=== PATIENT | female | born 1985 | race Caucasian/White ===

== ENCOUNTER → 2018-10-05 | Outpatient (CLI) | payer BC ==
[2018-10-05 11:42] LABS: BASO # 0.1 x10^3/uL (0.0-0.2); BASO % 1 % (0-3); EOS # 0.2 x10^3/uL (0.0-0.7); EOS % 2 % (0-3); HEMATOCRIT 43.1 % (36.0-47.0); HEMOGLOBIN 14.9 g/dL (12.0-15.5); LYMPH # 2.2 x10^3/uL (1.0-4.8); LYMPH % 22 % (24-48); MEAN CORPUSCULAR HEMOGLOBIN 30 pg (25-35); MEAN CORPUSCULAR HGB CONC 35 g/dL (31-37); MEAN CORPUSCULAR VOLUME 87 fL (79-100); MONO # 0.7 x10^3/uL (0.0-1.1); MONO % 7 % (0-9); NEUT # 6.8 x10^3uL (1.8-7.7); NEUT % 68 % (31-73); PLATELET COUNT 313 x10^3/uL (140-400); RED BLOOD COUNT 4.97 x10^6/uL (3.50-5.40); RED CELL DISTRIBUTION WIDTH 13.2 % (11.5-14.5)
[2018-10-05 12:04] LABS: THYROID STIM HORMONE (TSH) 3.871 uIU/mL (0.358-3.74)
[2018-10-05 19:12] LABS: ESTRADIOL LEVEL 50.9 pg/mL (.); FSH 6.4 mIU/mL (.); PROGESTERONE <0.1 ng/mL (.); PROLACTIN 14.6 ng/mL (4.8-23.3); TESTOSTERONE TOTAL 25 ng/dL (8-48)
[2018-10-05 20:11] LABS: HEMOGLOBIN A1C 5.5 % (4.8-5.6)
== END | disposition home or self-care (01) ==
LOC: LAB 10:52
PROVIDERS: ATTEND Obstetrics & Gynecology
DX: Z01.411 Encounter for gynecological examination (general) (routine) with abnormal findings (principal); N91.5 Oligomenorrhea, unspecified; N93.8 Other specified abnormal uterine and vaginal bleeding
CPT/HCPCS: 36415; 82627; 82670; 83001; 83036; 84144; 84146; 84403; 84439; 84443; 85025

== ENCOUNTER 2020-04-15 11:21 | Emergency (ER) | payer BC, OTHER ==
[~2020-04-15] VITALS: Ht 162.6 cm; Wt 101.6 kg
[~2020-04-15 11:21] MED LIST: ALBU2.5V8 INH; BUDE10.2 IH; IBUP-1060 PO; MONT10TA49 PO
--- NOTE | 2020-04-15 11:45 | PHYS DOC ---
General Adult EDM: Chief Complaint: MECHANICAL FALL HPI: HPI: Patient is a 35 year old female who presented to ER for evaluation of head neck pain, right knee pain, right ankle pain. Patient was trying to take out her trash, tripped and fell down about 10 steps. Patient hit her right knee and twisted her right ankle, she bumped her forehead on the ground. Patient denies loss of consciousness. Patient IS complaining of headache, right knee pain AND right ankle pain. Patient denies any back pain, no upper extremity pain. Review of Systems: Review of Systems: Constitutional: Denies fever or chills. [] Eyes: Denies change in visual acuity. [] HENT: Denies nasal congestion or sore throat. [] Respiratory: Denies cough or shortness of breath. [] Cardiovascular: Denies chest pain or edema. [] GI: Denies abdominal pain, nausea, vomiting, bloody stools or diarrhea. [] : Denies dysuria. [] Musculoskeletal: Denies back pain, positive for right knee and right ankle pa in. Integument: Denies rash. [] Neurologic: Positive for headache, no focal weakness or sensory changes. [] Endocrine: Denies polyuria or polydipsia. [] Lymphatic: Denies swollen glands. [] Psychiatric: Denies depression or anxiety. [] Heart Score: Risk Factors: Risk Factors: DM, Current or recent (<one month) smoker, HTN, HLP, family history of CAD, obesity. Risk Scores: Score 0 - 3: 2.5% MACE over next 6 weeks - Discharge Home Score 4 - 6: 20.3% MACE over next 6 weeks - Admit for Clinical Observation Score 7 - 10: 72.7% MACE over next 6 weeks - Early Invasive Strategies Allergies: Allergies: Allergies Coded Allergies Type Severity Reaction Last Updated Verified No Known Drug Allergies 03/31/19 No Physical Exam: PE: Constitutional: Well developed, well nourished, no acute distress, non-toxic appearance. [] HENT: Normocephalic, right side forehead contusion., bilateral external ears normal, oropharynx moist, no oral exudates, nose normal. [] Eyes: PERRLA, EOMI, conjunctiva normal, no discharge. [] Neck: Normal range of motion, no tenderness, supple, no stridor. [] Cardiovascular:Heart rate regular rhythm, no murmur [] Lungs & Thorax: Bilateral breath sounds clear to auscultation [] Abdomen: Bowel sounds normal, soft, no tenderness, no masses, no pulsatile masses. [] Skin: Warm, dry, no erythema, no rash. [] Back: No tenderness, no CVA tenderness. [] Extremities: right knee is tender to palpation, joint is stable, right ankle is swollen and tender, no open wound. Neurologic: Alert and oriented X 3, normal motor function, normal sensory function, no focal deficits noted. [] Psychologic: Affect normal, judgement normal, mood normal. [] EKG: EKG: [] Radiology/Procedures: Radiology/Procedures: [][facility] [address], [place] [id number] IMAGING REPORT Signed PATIENT: REMY BLAS ACCOUNT: [id number] : 1985 LOCATION: ER AGE: 35 SEX: F EXAM STATUS: PRE ER ORD. PHYSICIAN: FRANCESCA LIEBERMAN DO REASON: fell down stairs today, right knee and right ankle injured PROCEDURE: KNEE RIGHT 3V KNEE RIGHT 3V 04/15/2020 11:36 AM INDICATION: Fall down stairs. Right knee injury COMPARISON: None available. TECHNIQUE: 3 views of the right knee are provided. FINDINGS/ IMPRESSION: No significant knee joint effusion. There is no acute fracture or dislocation. Joint spaces are maintained. Bone mineralization is within normal limits. Regional soft tissues are within normal limits. There is no soft tissue gas or osseous erosion. No radiopaque foreign body. Electronically signed by: Hoa Ortez MD (04/15/2020 11:51 AM) [facility] DICTATED and SIGNED BY: HOA ORTEZ MD DATE: 04/15/20 1151 [facility] [address] [place] [address] IMAGING REPORT Signed PATIENT: REMY BLAS ACCOUNT: [id number] : 1985 LOCATION: ER AGE: 35 SEX: F EXAM STATUS: PRE ER ORD. PHYSICIAN: FRANCESCA LIEBERMAN DO REASON: fell, right knee and right ankle injured PROCEDURE: ANKLE RIGHT 3V ANKLE RIGHT 3V 04/15/2020 11:36 AM INDICATION: Fall, right knee and ankle injury. COMPARISON: None available. TECHNIQUE: 3 views of the right ankle are provided. FINDINGS/ IMPRESSION: 1. Obliquely oriented fracture/spiral fracture of the distal fibula with intra-articular extension to the ankle mortise. There is adjacent soft tissue swelling along the lateral ankle joint. Fracture is predominantly above the level of the talar dome. Distal tibia is intact. Electronically signed by: Hoa Ortez MD (04/15/2020 11:52 AM) [facility] DICTATED and SIGNED BY: HOA ORTEZ MD DATE: 04/15/20 1152 [facility] [address] [place] [address] IMAGING REPORT Signed PATIENT: REMY BLAS ACCOUNT: [id number] : 1985 LOCATION: ER AGE: 35 SEX: F EXAM STATUS: PRE ER ORD. PHYSICIAN: FRANCESCA LIEBERMAN DO REASON: fell down stair, head and neck pain PROCEDURE: CT HEAD AND CERVICAL SPINE WO PQRS Compliance Statement: One or more of the following individualized dose reduction techniques were utilized for this examination: 1. Automated exposure control 2. Adjustment of the mA and/or kV according to patient size 3. Use of iterative reconstruction technique CT HEAD AND CERVICAL SPINE WITHOUT CONTRAST History: Reason: fell down stair, head and neck pain / Comparison: None. Procedure: Axial images are obtained of the head from the skull base through the vertex without IV contrast. Noncontrast helical CT of the cervical spine was performed. Axial, sagittal, and coronal reconstructions were obtained. Findings: The ventricles and sulci are normal for the patient's age. No mass-effect, midline shift, hemorrhage or obvious acute infarction is identified. Basilar cisterns are patent. Bone windows demonstrate no significant calvarial abnormality.. There is mild right frontal scalp hematoma. Mucosal thickening bilateral frontal, bilateral ethmoid, right sphenoid, and left maxillary sinus. No air-fluid level is seen. Mastoid air cells are well aerated. There is no evidence of acute fracture or acute malalignment of the cervical spine. Straightening of normal cervical lordosis may be positional or due to muscle spasm. The vertebral body height and alignment are maintained. There is mild degenerative endplate spurring. Disc spaces relatively maintained. No perched or jumped facet joints. Visualized soft tissues of the neck demonstrate no significant abnormalities. The visualized lung apices are clear. IMPRESSION: 1. No acute intracranial abnormality. 2. Mild right frontal scalp hematoma. 3. No acute fracture of the cervical spine. Electronically signed by: Reid Villegas MD (04/15/2020 12:21 PM) [facility] DICTATED and SIGNED BY: REID VILLEGAS MD DATE: 04/15/20 122 SPLINTING PROCEDURE: Patient was informed about the fracture of the distal right fibula, Ortho glass material was used to splint right leg, stir up method by this physician, posterior splint exam show normal capillary refill, no neurovascular deficit. Patient tolerated procedure well. Course & Med Decision Making: Course & Med Decision Making Pertinent Labs and Imaging studies reviewed. (See chart for details) Patient is a 35-year-old female who was evaluated in ER due to a fall. Patient sustained closed head injury, right knee contusion, right distal fibula fracture with no dislocation. A splint was applied to her right ankle, orthopedic surgeon on-call Dr. Teja Srivastava was consulted who recommended to send patient home and follow-up in the clinic. Rogerio Disclaimer: Dragmissael Disclaimer: This electronic medical record was generated, in whole or in part, using a voice recognition dictation system. Departure Departure Impression: Primary Impression: Closed fracture of right distal fibula Additional Impression: Head injury Disposition: HOME, SELF-CARE Condition: IMPROVED Referrals: LAWSON CARDENAS (PCP) TEJA SRIVASTAVA II, MD please call this orthopedic doctor for follow up next week. Patient Instructions: Crutch Use, Fibular Fracture, Ankle, Adult, Undisplaced, Treated with Immobilization Additional Instructions: NO WEIGHT BEARING ON RIGHT LEG. Scripts Hydrocodone/Apap 5-325 (NORCO 5-325 TABLET) 1 Each Tablet 1 TAB PO PRN Q6HRS PRN for PAIN, #20 TAB 0 Refills Prov: FRANCESCA LIEBERMAN DO 04/15/20 Justicifation of Admission Dx: Justifications for Admission: Justification of Admission Dx: N/A FRANCESCA LIEBERMAN DO Apr 15, 2020 11:45
--- NOTE | 2020-04-15 11:53 | RAD ---
KNEE RIGHT 3V 04/15/2020 11:36 AM INDICATION: Fall down stairs. Right knee injury COMPARISON: None available. TECHNIQUE: 3 views of the right knee are provided. FINDINGS/ IMPRESSION: No significant knee joint effusion. There is no acute fracture or dislocation. Joint spaces are maintained. Bone mineralization is within normal limits. Regional soft tissues are within normal limits. There is no soft tissue gas or osseous erosion. No radiopaque foreign body. Electronically signed by: Sofi Carvajal MD (04/15/2020 11:51 AM) [facility]
--- NOTE | 2020-04-15 11:55 | RAD ---
ANKLE RIGHT 3V 04/15/2020 11:36 AM INDICATION: Fall, right knee and ankle injury. COMPARISON: None available. TECHNIQUE: 3 views of the right ankle are provided. FINDINGS/ IMPRESSION: 1. Obliquely oriented fracture/spiral fracture of the distal fibula with intra-articular extension to the ankle mortise. There is adjacent soft tissue swelling along the lateral ankle joint. Fracture is predominantly above the level of the talar dome. Distal tibia is intact. Electronically signed by: Sofi Carvajal MD (04/15/2020 11:52 AM) [facility]
--- NOTE | 2020-04-15 12:24 | RAD ---
PQRS Compliance Statement: One or more of the following individualized dose reduction techniques were utilized for this examination: 1. Automated exposure control 2. Adjustment of the mA and/or kV according to patient size 3. Use of iterative reconstruction technique CT HEAD AND CERVICAL SPINE WITHOUT CONTRAST History: Reason: fell down stair, head and neck pain / Comparison: None. Procedure: Axial images are obtained of the head from the skull base through the vertex without IV contrast. Noncontrast helical CT of the cervical spine was performed. Axial, sagittal, and coronal reconstructions were obtained. Findings: The ventricles and sulci are normal for the patient's age. No mass-effect, midline shift, hemorrhage or obvious acute infarction is identified. Basilar cisterns are patent. Bone windows demonstrate no significant calvarial abnormality.. There is mild right frontal scalp hematoma. Mucosal thickening bilateral frontal, bilateral ethmoid, right sphenoid, and left maxillary sinus. No air-fluid level is seen. Mastoid air cells are well aerated. There is no evidence of acute fracture or acute malalignment of the cervical spine. Straightening of normal cervical lordosis may be positional or due to muscle spasm. The vertebral body height and alignment are maintained. There is mild degenerative endplate spurring. Disc spaces relatively maintained. No perched or jumped facet joints. Visualized soft tissues of the neck demonstrate no significant abnormalities. The visualized lung apices are clear. IMPRESSION: 1. No acute intracranial abnormality. 2. Mild right frontal scalp hematoma. 3. No acute fracture of the cervical spine. Electronically signed by: Reid Villegas MD (04/15/2020 12:21 PM) [facility]
[2020-04-15] MEDS ORDERED: HYDROcodone/APAP 5/325MG 1 TAB TABLET PO ONE (13:30)
[2020-04-15 14:00] VITALS: BP 142/80
[2020-04-15] MEDS ORDERED: HYDR-3164 PO (14:42)
== END 2020-04-15 15:01 | disposition home or self-care (01) ==
LOC: ER 11:21
DX: S82.831A Other fracture of upper and lower end of right fibula, initial encounter for closed fracture (principal); S09.90XA Unspecified injury of head, initial encounter; M25.561 Pain in right knee; M54.2 Cervicalgia; R51 Headache; W10.8XXA Fall (on) (from) other stairs and steps, initial encounter; Y93.89 Activity, other specified; Y92.89 Other specified places as the place of occurrence of the external cause; Y99.8 Other external cause status
CPT/HCPCS: 29515; 70450; 72125; 73562; 73610; 99285-25